=== PATIENT | female | born 1995 | race African-American/Black ===

== ENCOUNTER 2020-08-27 08:58 | Outpatient (CLI) | payer OTHER | END 2020-08-27 08:59 | disposition home or self-care (01) | LOC: CSHWCC 08:58 | PROVIDERS: ATTEND Nurse Practitioner Family | DX: S21.001D Unspecified open wound of right breast, subsequent encounter (principal); S21.002D Unspecified open wound of left breast, subsequent encounter; E66.3 Overweight; G89.11 Acute pain due to trauma; L26 Exfoliative dermatitis; L73.2 Hidradenitis suppurativa; Z98.890 Other specified postprocedural states | CPT/HCPCS: 99213; G0463 ==

== ENCOUNTER 2020-09-24 08:19 | Outpatient (CLI) | payer OTHER | END 2020-09-24 08:20 | disposition home or self-care (01) | LOC: CSHWCC 08:19 | PROVIDERS: ATTEND Nurse Practitioner Family | DX: S21.001A Unspecified open wound of right breast, initial encounter (principal); S21.002A Unspecified open wound of left breast, initial encounter; E66.3 Overweight; G89.11 Acute pain due to trauma; L26 Exfoliative dermatitis; L73.2 Hidradenitis suppurativa; Z98.890 Other specified postprocedural states | CPT/HCPCS: 99213; G0463 ==

== ENCOUNTER 2020-10-17 12:03 | Outpatient (CLI) | payer OTHER | END 2020-10-17 12:04 | disposition home or self-care (01) | LOC: CSHWCC 12:03 | PROVIDERS: ATTEND Nurse Practitioner Family | DX: S21.001D Unspecified open wound of right breast, subsequent encounter (principal); S21.002D Unspecified open wound of left breast, subsequent encounter; G89.11 Acute pain due to trauma; E66.3 Overweight; L26 Exfoliative dermatitis; L73.2 Hidradenitis suppurativa; Z98.890 Other specified postprocedural states | CPT/HCPCS: 99213; G0463 ==

== ENCOUNTER 2020-12-31 08:15 | Outpatient (CLI) | payer OTHER | END 2020-12-31 08:16 | disposition home or self-care (01) | LOC: CSHWCC 08:15 | PROVIDERS: ATTEND Nurse Practitioner Family | DX: S21.001A Unspecified open wound of right breast, initial encounter (principal); E66.3 Overweight; G89.11 Acute pain due to trauma; L26 Exfoliative dermatitis; L73.2 Hidradenitis suppurativa; S21.002A Unspecified open wound of left breast, initial encounter; Z98.890 Other specified postprocedural states | CPT/HCPCS: 99213; G0463 ==

== ENCOUNTER 2021-04-08 08:13 | Outpatient (CLI) | payer OTHER | END 2021-04-08 08:14 | disposition home or self-care (01) | LOC: CSHWCC 08:13 | PROVIDERS: ATTEND Nurse Practitioner Family | DX: S21.002D Unspecified open wound of left breast, subsequent encounter (principal); S21.001D Unspecified open wound of right breast, subsequent encounter; L26 Exfoliative dermatitis; L73.2 Hidradenitis suppurativa; E66.3 Overweight; G89.11 Acute pain due to trauma; Z98.890 Other specified postprocedural states | CPT/HCPCS: 99213; G0463 ==